=== PATIENT | male | born 1935 | race American Indian/Alaskan Native ===

== ENCOUNTER 2017-08-25 10:23 | Outpatient (CLI) | payer MEDICARE, OTHER ==
--- NOTE | 2017-08-25 12:54 | Cat Scan Report ---
CT LOWER EXTREMITY RIGHT WITHOUT CONTRAST HISTORY: Right hip pain. TECHNIQUE: Helical CT in 1.25 mm intervals were obtained through the right hip. Sagittal and coronal reformatted images. FINDINGS: Osteopenia is suspected. There is no evidence for fracture, dislocation or bone lesion. Mild osteoarthritic changes are identified. No evidence for osteonecrosis. The visualized right hemipelvis is intact. Soft tissue structures surrounding the right hip are within normal limits. IMPRESSION: Osteopenia. Mild age-appropriate osteoarthritis. No evidence for fracture, osteonecrosis or bone lesion.
== END 2017-08-25 10:24 | disposition home or self-care (01) ==
LOC: CT 10:23
PROVIDERS: ATTEND Internal Medicine
DX: M16.11 Unilateral primary osteoarthritis, right hip (principal); M85.88 Other specified disorders of bone density and structure, other site

== ENCOUNTER 2019-03-20 08:31 | Inpatient (IN) | payer MEDICARE, OTHER ==
[2019-03-20] MEDS ORDERED: APRESOLINE IV ONE (09:01)
--- NOTE | 2019-03-20 09:36 | Emergency Department Report ---
HPI - General Chief Complaint: Weakness Time Seen by Provider: 03/20/19 08:47 - HPI HPI: 83-year-old -Polish male presents to the emergency department via EMS from home with a complaint of some generalized weakness upon waking up this morning. Patient phoned his family because he was having difficulty making it to the bathroom. He got up from the bed and felt like he was going to pass out but was able to catch himself. He did not take anything for his symptoms prior to presentation. 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 He did not take any of his medications today and presents with elevated blood pressure. He does not complain of any headache, numbness, slurred speech or any focal or lateralizing deficits. He is not a tobacco smoker. His primary care physician is Dr. Braswell and he follows with [facility] cardiology. ED Past Medical Hx - Past Medical History Hx Hypertension: Yes Hx Diabetes: Yes (NIDDM 18 YEARS) Hx GERD: Yes Hx Arthritis: Yes - Social History Smoking Status: Never Smoker - Medications Home Medications: Home Medications Medication Instructions Recorded Confirmed Last Taken Type Aspirin [Aspirin BABY CHEW TAB] 81 mg PO QDAY 03/20/19 03/20/19 03/19/19 History Imipramine HCl 25 mg PO QDAY 03/20/19 03/20/19 03/19/19 History Ranolazine ER [Ranexa ER] 500 mg PO BID 03/20/19 03/20/19 03/19/19 History metFORMIN [Glucophage] 500 mg PO BID 03/20/19 03/20/19 03/19/19 History ED Review of Systems ROS: Stated complaint: WEAKNESS Other details as noted in HPI Comment: All other systems reviewed and negative Constitutional: weakness. denies: chills, fever Eyes: denies: eye pain, vision change ENT: denies: ear pain, throat pain Respiratory: denies: cough, wheezing Cardiovascular: denies: chest pain, palpitations Gastrointestinal: denies: abdominal pain, vomiting Genitourinary: denies: dysuria, discharge Musculoskeletal: denies: back pain, arthralgia Skin: denies: rash, lesions Neurological: denies: headache, weakness Physical Exam - Physical Exam Vital Signs: Vital Signs 03/20/19 03/20/19 08:34 08:44 Temperature 97.7 F Pulse Rate 60 Respiratory 18 Rate Blood Pressure 215/105 [Left] Physical Exam: GENERAL: The patient is well-developed well-nourished. HENT: Normocephalic. Atraumatic. Patient has moist mucous membranes. EYES: Extraocular motions are intact. Pupils equal reactive to light bilaterally. NECK: Supple. Trachea is midline. CHEST/LUNGS: Clear to auscultation. There is no respiratory distress noted. HEART/CARDIOVASCULAR: Regular. There is no tachycardia. There is no murmur. ABDOMEN: Abdomen is soft, nontender. Patient has normal bowel sounds. There is no abdominal distention. SKIN: Skin is warm and dry. NEURO: The patient is awake, alert, and oriented. The patient is cooperative. No pronator drift. No dysmetria. Cranial nerves II through XII grossly intact. Subjective decreased sensation to the left side of the face. Normal speech. No facial asymmetry. MUSCULOSKELETAL: There is no tenderness or deformity. There is no limitation range of motion. There is no evidence of acute injury. ED Course Vital Signs 03/20/19 03/20/19 08:34 08:44 Temperature 97.7 F Pulse Rate 60 Respiratory 18 Rate Blood Pressure 215/105 [Left] ED Medical Decision Making - Lab Data Result diagrams: 03/20/19 09:40 03/20/19 09:40 - EKG Data -: EKG Interpreted by [facility] EKG shows normal: sinus rhythm (PACs), axis, intervals, QRS complexes (Q waves to the septal leads), ST-T waves Rate: normal - EKG Data When compared to previous EKG there are: no significant change Interpretation: unchanged when compared t (01/05/15) - Radiology Data Radiology results: report reviewed CT head/brain wo con INDICATION: Stroke symptoms. TECHNIQUE: All CT scans at this location are performed using CT dose reduction for ALARA by means of automated exposure control. COMPARISON: None available. FINDINGS: Visualized paranasal and mastoid sinuses are clear. Moderate, age-appropriate cortical involution and chronic white matter ischemic change. No mass, hemorrhage or other acute abnormality. IMPRESSION: 1. Chronic changes. No acute abnormality. - Medical Decision Making This patient presents from home with the complaint of some generalized weakness that made it difficult for him to get up and ambulate and do his ADLs. He does not complain of any focal or lateralizing deficits but on examination he has some subjective decreased sensation to the left side of the face when compared to the right. This gives him a 1 on the NIH stroke scale. The patient woke up with these symptoms and/or complaints and therefore there is no obvious last known well time. The patient does not appear to be a TPA candidate. He also is low on the NIH stroke scale and is low likelihood to have a large vessel occlusion. CT scan of the head did not show any bleed, shift, mass, ischemia, or any other acute process. Only chronic changes noted. Patient has some hypertension but it has stayed stable or at a reasonable level throughout his ED course. After the negative CT scan of the head was performed, the patient was given a full dose aspirin. He will be admitted to the hospital for further evaluation and treatment and was accepted for admission by the hospitalist, Dr. Cook. - Differential Diagnosis CVA, TIA, dysrhythmia, hypoglycemia Critical Care Time: No Critical care attestation.: If time is entered above; I have spent that time in minutes in the direct care of this critically ill patient, excluding procedure time. ED Disposition Clinical Impression: Generalized weakness, Left facial numbness Hypertension Qualifiers: Hypertension type: essential hypertension Qualified Code(s): I10 - Essential (primary) hypertension Disposition: OP ADMIT IP TO THIS HOSP Is pt being admited?: Yes Condition: Fair Time of Disposition: 13:59 - Assessment Assessment Interval: Baseline - Level of Consciousness 1a. Level of Consciousness: alert/keenly responsive - LOC Questions 1b. LOC Questions: answers both correctly - LOC Command 1c. LOC Commands: performs tasks correctly - Best Gaze 2. Best Gaze: normal - Visual 3. Visual: no visual loss - Facial Palsy 4. Facial Palsy: normal symmetrical movement - Motor Arm 5a. Motor Arm Left: no drift 5b. Motor Arm Right: no drift - Motor Leg 6a. Motor Leg Left: no drift 6b. Motor Leg Right: no drift - Limb Ataxia 7. Limb Ataxia: absent - Sensory 8. Sensory: mild/moderate sensory loss - Best Language 9. Best Language: no aphasia - Dysarthria 10. Dysarthria: normal - Extinction and Inattention 11. Extinction/Inattention: no abnormality - Scoring Total Score: 1 Stroke Severity: Minor Stroke
--- NOTE | 2019-03-20 09:55 | Cat Scan Report ---
CT head/brain wo con INDICATION: Stroke symptoms. TECHNIQUE: All CT scans at this location are performed using CT dose reduction for ALARA by means of automated e xposure control. COMPARISON: None available. FINDINGS: Visualized paranasal and mastoid sinuses are clear. Moderate, age-appropriate cortical involution and chronic white matter ischemic change. No mass, hemorrhage or other acute abnormality. IMPRESSION: 1. Chronic changes. No acute abnormality. Signer Name: Mahamed Prakash MD Signed: 03/20/2019 9:50 AM Workstation Name: [id number]
[2019-03-20 10:11] LABS: Basophils # (Auto) 0.1 K/mm3 (0.0-0.1); Basophils % (Auto) 1.2 % (0.0-1.8); Eosinophils # (Auto) 0.1 K/mm3 (0.0-0.4); Eosinophils % (Auto) 0.8 % (0.0-4.3); Hematocrit 38.5 % (35.5-45.6); Hemoglobin 12.5 gm/dl (11.8-15.2); Lymphocytes # (Auto) 2.9 K/mm3 (1.2-5.4); Lymphocytes % (Auto) 30.9 % (13.4-35.0); Mean Corpuscular HGB Conc 33 % (32-34); Mean Corpuscular Volume 87 fl (84-94); Monocytes % (Auto) 11.1 % (0.0-7.3); Platelet Count 314 K/mm3 (140-440); Red Blood Count 4.42 M/mm3 (3.65-5.03); Red Cell Distribution Width 14.3 % (13.2-15.2)
[2019-03-20 10:26] LABS: Creatine Kinase MB 1.5 ng/mL (0.0-4.0)
[2019-03-20 10:27] LABS: Alanine Aminotransferase 11 units/L (7-56); Albumin 3.6 g/dL (3.9-5); BUN/Creatinine Ratio 20; Blood Urea Nitrogen 20 mg/dL (9-20); Calcium 9.4 mg/dL (8.4-10.2); Hemolysis Index 5
[2019-03-20 10:32] LABS: INR 0.94 (0.87-1.13)
[2019-03-20 10:33] LABS: Partial Thromboplastin Time 28.9 Sec. (24.2-36.6)
[2019-03-20] MEDS ORDERED: BABY ASPIRIN PO ONE (11:08)
--- NOTE | 2019-03-20 12:15 | History and Physical Report ---
History of Present Illness Chief complaint: I feel weak History of present illness: 83 YO male with DM, GERD, OA,HTN presents to ED for evaluation. Pt states that he was in his usual state of health at bedtime which was around 2030 hrs. Upon waking from sleep this morning the patient reports feeling weak and was unable to walk like he was able to do the prior evening. Pt also reports that he had difficulty speaking, as well as feeling like he was going to pass out. Pt called his family, who subsequently notified EMS. Upon arrival the patient was found to have neurologic deficit and transported to [facility]. Pt seen and evaluated in ED and found to have symptoms consistent with CVA. Pt admitted to telemetry and initi ated on CVA protocol. Pt is outside therapeutic window for TPA at time of evaluation. Pt denies fever, chills, CP, Palpitations, NVD, Trauma, BRBPR, Productive cough, skin rash, or recent ill contacts. No prior admission for review. All listed medication reconciled at time of admission. Past History Past Medical History: arthritis, diabetes, GERD, hypertension Past Surgical History: No surgical history, Other (reviewed) Social history: , lives with family. denies: smoking, alcohol abuse, prescription drug abuse Family history: diabetes, hypertension Medications and Allergies Allergies Allergy/AdvReac Type Severity Reaction Status Date / Time No Known Allergies Allergy Verified 01/03/15 11:25 Home Medications Medication Instructions Recorded Confirmed Last Taken Type Aspirin [Aspirin BABY CHEW TAB] 81 mg PO QDAY 03/20/19 03/20/19 03/19/19 History Imipramine HCl 25 mg PO QDAY 03/20/19 03/20/19 03/19/19 History Ranolazine ER [Ranexa ER] 500 mg PO BID 03/20/19 03/20/19 03/19/19 History metFORMIN [Glucophage] 500 mg PO BID 03/20/19 03/20/19 03/19/19 History Review of Systems Constitutional: no weight loss, no weight gain, no fever, no chills, no sweats Ears, nose, mouth and throat: no ear pain, no ear discharge, no tinnitis, no nose pain Cardiovascular: no chest pain, no orthopnea, no palpitations, no rapid/irregular heart beat, no edema Respiratory: no cough, no cough with sputum, no hemoptysis, no shortness of breath Gastrointestinal: no abdominal pain, no nausea, no vomiting Genitourinary Male: no hematuria, no flank pain, no discharge, no urinary frequency, no urinary hesitancy Rectal: no pain, no incontinence, no bleeding Musculoskeletal: no neck stiffness, no neck pain, no shooting arm pain, no low back pain Integumentary: no pruritis, no redness, no wounds, no jaundice, no boils Neurological: weakness, ataxia, lack of coordination, change in speech, balance difficulties, no tingling, no seizures, no headaches, no migraines Psychiatric: no anxiety, no memory loss, no change in sleep habits, no sleep disturbances, no hypersomnia, no change in appetite, no change in libido Endocrine: no cold intolerance, no heat intolerance, no excessive thirst, no polydipsia, no polyuria, no nocturia, no flushing Hematologic/Lymphatic: no easy bruising, no easy bleeding, no lymphadenopathy, no lymphedema Allergic/Immunologic: no urticaria, no allergic rhinitis, no anaphylaxis, no angioedema Exam - Constitutional Vitals: Temp Pulse Resp BP Pulse Ox 97.7 F 66 14 175/78 95 03/20/19 08:44 03/20/19 11:00 03/20/19 11:00 03/20/19 11:00 03/20/19 11:00 General appearance: Present: mild distress - EENT Eyes: Present: PERRL ENT: hearing intact, clear oral mucosa - Neck Neck: Present: supple, normal ROM - Respiratory Respiratory effort: normal Respiratory: bilateral: CTA - Cardiovascular Heart Sounds: Present: S1 & S2. Absent: rub, click - Extremities Extremities: pulses symmetrical, No edema Peripheral Pulses: within normal limits - Abdominal General gastrointestinal: Present: soft, non-tender, non-distended, normal bowel sounds Male genitourinary: Present: normal - Integumentary Integumentary: Present: clear, warm, dry - Musculoskeletal Musculoskeletal: gait normal, strength equal bilaterally - Psychiatric Psychiatric: appropriate mood/affect, intact judgment & insight - Neurologic Neurologic: CNII-XII intact, moves all extremities Results - Labs CBC & Chem 7: 03/20/19 09:40 03/20/19 09:40 Labs: Abnormal lab results 03/20/19 03/20/19 Range/Units 09:40 09:40 [place] % (Auto) 11.1 H (0.0-7.3) % Barren # 1.0 H (0.0-0.8) K/mm3 Glucose 124 H (75-100) mg/dL Total Creatine Kinase 39 L (55-170) units/L Albumin 3.6 L (3.9-5) g/dL Assessment and Plan - Patient Problems (1) CVA (cerebral vascular accident) Current Visit: Yes Status: Acute Qualifiers: Laterality of affected vessel: unspecified Plan to address problem: CVA Protocol: CT head, PT/OT/Speech Therapy consulted, Antiplatelet therapy, lipid panel, statin therapy, Carotid doppler, echo, neurology consulted, further testing as per neurology team. (2) HTN (hypertension) Current Visit: Yes Status: Acute Qualifiers: Hypertension type: essential hypertension Qualified Code(s): I10 - Ess ential (primary) hypertension Plan to address problem: Monitor bp q shift, permissive hypertension overnight. Goal systolic between 155-180 (3) Diabetes Current Visit: Yes Status: Acute Plan to address problem: ADA diet, insulin, accu check (4) GERD (gastroesophageal reflux disease) Current Visit: Yes Status: Acute Qualifiers: Esophagitis presence: without esophagitis Qualified Code(s): K21.9 - Gastro-esophageal reflux disease without esophagitis Plan to address problem: PPI therapy, supportive care,. (5) Osteoarthritis Current Visit: Yes Status: Acute Qualifiers: Spinal region: unspecified Plan to address problem: Pain control, supportive care. (6) DVT prophylaxis Current Visit: Yes Status: Acute Plan to address problem: SCD to BLE while in bed, Prophylactic lovenox
[2019-03-20] MEDS ORDERED: TYLENOL PO PRN (12:16)
[2019-03-20] MEDS ORDERED: REGLAN PO PRN (12:16)
[2019-03-20] MEDS ORDERED: SODIUM CHLORIDE FLUSH SYRINGE 10 ML IV PRN (12:16)
[2019-03-20] MEDS ORDERED: DULCOLAX PR PRN (12:16)
[2019-03-20] MEDS ORDERED: MILK OF MAGNESIA PO PRN (12:16)
[2019-03-20] MEDS ORDERED: ZOFRAN IV PRN (12:16)
[2019-03-20] MEDS ORDERED: PHENERGAN PR PRN (12:16)
--- NOTE | 2019-03-20 14:50 | Vascular Lab Report ---
VL carotid duplex BILAT INDICATION / CLINICAL INFORMATION: stroke. COMPARISON: None available. FINDINGS: Moderate plaque formation is demonstrated at both bifurcations. Velocity measurements and waveform an alysis indicate 60-70% stenosis of the right internal carotid artery, according to Nascet criteria. A pproximately 50% stenosis is demonstrated in the left internal carotid, again according to Nascet cri teria. Normal antegrade flow is demonstrated in both vertebral arteries. IMPRESSION: 1. 60-70% stenosis right internal carotid artery. 2. 50% stenosis left internal carotid artery. Signer Name: Mahamed Prakash MD Signed: 03/20/2019 2:46 PM Workstation Name: [id number]
[2019-03-20] MEDS: RANEXA ER PO SCH (21:26)
--- NOTE | 2019-03-21 09:36 | Progress Note ---
Assessment and Plan Assessment and plan: CVA (cerebral vascular accident) CVA Protocol: CT head, PT/OT/Speech Therapy consulted, Antiplatelet therapy, lipid panel, statin therapy, Carotid doppler, echo, neurology consulted, further testing as per neurology team. HTN (hypertension) Monitor bp q shift, permissive hypertension overnight. Goal systolic between 155-180 Diabetes ADA diet, insulin, accu check GERD (gastroesophageal reflux disease) PPI therapy, supportive care,. Osteoarthritis Pain control, supportive care. DVT prophylaxis SCD to BLE while in bed, Prophylactic lovenox History Interval history: No new issues overnight. Hospitalist Physical - Constitutional Vitals: Temp Pulse Resp BP Pulse Ox 98.6 F 63 18 146/78 95 03/21/19 07:59 03/21/19 07:59 03/21/19 07:59 03/21/19 07:59 03/21/19 07:59 General appearance: Present: no acute distress - EENT Eyes: Present: PERRL, EOM intact ENT: hearing intact, clear oral mucosa, dentition normal - Neck Neck: Present: supple, normal ROM - Respiratory Respiratory effort: normal Respiratory: bilateral: CTA - Cardiovascular Rhythm: regular Heart Sounds: Present: S1 & S2. Absent: gallop, rub - Extremities Extremities: no ischemia, No edema, Full ROM - Abdominal General gastrointestinal: soft, non-tender, non-distended, normal bowel sounds - Integumentary Integumentary: Present: clear, warm, dry - Neurologic Neurologic: CNII-XII intact, moves all extremities Results - Labs CBC & Chem 7: 03/20/19 09:40 03/20/19 09:40 Labs: Laboratory Last Values WBC 9.5 K/mm3 (4.5-11.0) 03/20/19 09:40 RBC 4.42 M/mm3 (3.65-5.03) 03/20/19 09:40 Hgb 12.5 gm/dl (11.8-15.2) 03/20/19 09:40 Hct 38.5 % (35.5-45.6) 03/20/19 09:40 MCV 87 fl (84-94) 03/20/19 09:40 MCH 28 pg (28-32) 03/20/19 09:40 MCHC 33 % (32-34) 03/20/19 09:40 RDW 14.3 % (13.2-15.2) 03/20/19 09:40 Plt Count 314 K/mm3 (140-440) 03/20/19 09:40 Lymph % (Auto) 30.9 % (13.4-35.0) 03/20/19 09:40 [place] % (Auto) 11.1 % (0.0-7.3) H 03/20/19 09:40 Eos % (Auto) 0.8 % (0.0-4.3) 03/20/19 09:40 Baso % (Auto) 1.2 % (0.0-1.8) 03/20/19 09:40 Lymph # 2.9 K/mm3 (1.2-5.4) 03/20/19 09:40 [place] # 1.0 K/mm3 (0.0-0.8) H 03/20/19 09:40 Eos # 0.1 K/mm3 (0.0-0.4) 03/20/19 09:40 Baso # 0.1 K/mm3 (0.0-0.1) 03/20/19 09:40 Seg Neutrophils % 56.0 % (40.0-70.0) 03/20/19 09:40 Seg Neutrophils # 5.3 K/mm3 (1.8-7.7) 03/20/19 09:40 PT 12.3 Sec. (12.2-14.9) 03/20/19 09:40 INR 0.94 (0.87-1.13) 03/20/19 09:40 APTT 28.9 Sec. (24.2-36.6) 03/20/19 09:40 Sodium 139 mmol/L (137-145) 03/20/19 09:40 Potassium 4.6 mmol/L (3.6-5.0) 03/20/19 09:40 Chloride 101.8 mmol/L (98-107) 03/20/19 09:40 Carbon Dioxide 23 mmol/L (22-30) 03/20/19 09:40 19 mmol/L 03/20/19 09:40 BUN 20 mg/dL (9-20) 03/20/19 09:40 1.0 mg/dL (0.8-1.5) 03/20/19 09:40 Estimated GFR > 60 ml/min 03/20/19 09:40 20 % 03/20/19 09:40 Glucose 124 mg/dL (75-100) H 03/20/19 09:40 POC Glucose 137 (70-105) H 03/21/19 08:07 Calcium 9.4 mg/dL (8.4-10.2) 03/20/19 09:40 0.30 mg/dL (0.1-1.2) 03/20/19 09:40 AST 16 units/L (5-40) 03/20/19 09:40 ALT 11 units/L (7-56) 03/20/19 09:40 68 units/L (35-129) 03/20/19 09:40 39 units/L (55-170) L 03/20/19 09:40 CK-MB (CK-2) 1.5 ng/mL (0.0-4.0) 03/20/19 09:40 CK-MB (CK-2) Rel Index 3.8 (0-4) 03/20/19 09:40 < 0.010 ng/mL (0.00-0.029) 03/20/19 09:40 8.0 g/dL (6.3-8.2) 03/20/19 09:40 3.6 g/dL (3.9-5) L 03/20/19 09:40 0.8 % 03/20/19 09:40 TSH 1.130 mlU/mL (0.270-4.200) 03/20/19 09:40 Plasma/Serum Alcohol < 0.01 % (0-0.07) 03/20/19 09:40 Active Medications - Current Medications Current Medications: Generic Name Dose Route Start Last Admin Trade Name Freq PRN Reason Stop Dose Admin Acetaminophen 650 mg 03/20/19 12:16 Tylenol PO Q4H PRN Pain, Mild (1-3) Aspirin 325 mg 03/21/19 10:00 Aspirin PO QDAY TERE Aspirin 81 mg 03/21/19 10:00 Baby Aspirin PO QDAY TERE Atorvastatin Calcium 40 mg 03/20/19 22:00 03/20/19 21:26 Lipitor PO 40 mg QHS TERE Administration Bisacodyl 10 mg 03/20/19 12:16 Dulcolax NC QDAY PRN Constipation Enoxaparin Sodium 40 mg 03/21/19 10:00 Lovenox SUB-Q QDAY@1000 TERE Magnesium Hydroxide 30 ml 03/20/19 12:16 Milk Of Magnesia PO Q4H PRN Constipation Metoclopramide HCl 10 mg 03/20/19 12:16 Reglan PO Q6H PRN Nausea And Vomiting Miscellaneous Medication 25 mg 03/21/19 10:00 Imipramine Hcl [Imipramine Hcl] PO QDAY [facility] Ondansetron HCl 4 mg 03/20/19 12:16 Zofran IV Q8H PRN Nausea And Vomiting Promethazine HCl 25 mg 03/20/19 12:16 Phenergan NC Q6H PRN Nausea And Vomiting Ranolazine 500 mg 03/20/19 22:00 03/20/19 21:26 Ranexa Er PO 500 mg BID [facility] Administration Sodium Chloride 10 ml 03/20/19 12:16 Sodium Chloride Flush Syringe 10 Ml IV PRN PRN LINE FLUSH
[2019-03-21] MEDS: RANEXA ER PO SCH ×2 (09:40→21:32)
[2019-03-21] MEDS: LOVENOX SUB-Q SCH (09:40)
[2019-03-21] MEDS: ASPIRIN PO SCH (09:40)
[2019-03-21] MEDS ORDERED: IMIPRAMINE HCL 25 MG PO SCH (10:00)
[2019-03-21] MEDS ORDERED: LOVENOX SUB-Q SCH (10:00)
[2019-03-21] MEDS ORDERED: BABY ASPIRIN PO SCH (10:00)
--- NOTE | 2019-03-21 11:20 | Progress Note ---
Subjective Date of service: 03/21/19 Interval history: see my extensive note on the exam and my analysis of the head CT suspect minor deep white matter strokes and severe diabetic neuropathy see saumya intrinsic hand muscle atrophy Objective - Vital Sign Vital Signs - 12hr 03/21/19 03/21/19 03/21/19 00:59 01:07 04:07 Temperature 98.0 F Pulse Rate 104 H 90 Respiratory 20 Rate Blood Pressure 122/80 O2 Sat by Pulse 100 Oximetry 03/21/19 03/21/19 03/21/19 05:16 05:17 07:59 Temperature 98.1 F 98.6 F Pulse Rate 65 63 Respiratory 18 18 Rate Blood Pressure 135/66 146/78 O2 Sat by Pulse 100 95 Oximetry - Laboratory Findings CBC and BMP: 03/20/19 09:40 03/20/19 09:40 Abnormal Lab Findings: Abnormal Labs 03/20/19 03/20/19 03/20/19 09:40 09:40 16:12 [place] % (Auto) 11.1 H [place] # 1.0 H Glucose 124 H POC Glucose 138 H Total Creatine Kinase 39 L Albumin 3.6 L 03/20/19 03/21/19 22:01 08:07 [place] % (Auto) [place] # Glucose POC Glucose 179 H 137 H Total Creatine Kinase Albumin
--- NOTE | 2019-03-22 04:30 | Consultation ---
HISTORY OF PRESENT ILLNESS: This 83-year-old black male who enters [facility] through the Emergency Room where he had presented with onset of being markedly weak, unable to walk. He apparently got up in the morning and was not feeling well, it was stated that he could not feel his legs, could not feel his hands. He got up to go to the bathroom, he felt like he was going to pass out. He possibly had a syncopal episode, although from his description it does not appear that he did actually pass out or that he became generally weak and numb. He has a long history of diabetes mellitus and is taking insulin, also imipramine, aspirin, Ranexa XR 500 mg b.i.d. and metformin 500 mg b.i.d. He does not have a prior medical history of stroke. When he presented to the Emergency Room, his blood sugar was elevated at 124. His hematocrit was 38.5. He was felt to be possibly have a stroke, but the case was presented to the tele-neurology and NIH stroke scale was 1 and he was not felt to be a candidate for further TPA. Subsequently, he has been admitted, his blood pressure was markedly elevated at 215/105. He is felt to have some degree of hypertensive encephalopathy. I would note, the patient has an opacified left pupil is reactive to light, but he does have extraocular movements being intact. This is a condition present on admission as documented by the Emergency Room physician's note. My review of the CT scan of the head reveals the ventricular system is normal. He has a mild degree of cerebellar atrophy, but very marked frontal atrophy. I do not see any evidence of any subdurals. There is enlarged subarachnoid space. He also has patchy loss of the white matter in both, the central white matter in the internal capsule more predominantly so over the right than the left. The patient has evidence also of calcification in the medial globus pallidus, it is bilateral, which based on my review seems to be physiological since there is no extension of this calcification of the caudate nucleus. I did not see calcification within the nuclear structures of the cerebellum. The brainstem I should point out has a very normal volume. There is no evidence of any degeneration of the brain stem structures. Overall, the degree of loss of cortical volume over the hemispheres is probably compatible with the stated age of 83. On my examination of the patient, he is alert and appropriate. Speech is clear. Affect is appropriate. He is blind in the left eye. He has full ocular movements, however. He has very marked degree of loss of movement in the hands, the intrinsic hand muscle atrophy. Absent reflexes are present throughout. The patient does have intact motor tone, although he is markedly weak in the intrinsic hand muscles indicative of median and ulnar neuropathy probably very advanced related to peripheral diabetic disease. IMPRESSION: Acute onset of near syncopal episode. Clearly, there are number of issues centrally in the brain, deep white matter disease. I would recommend getting an MRI because he could have had a small lacunar infarct in the deep white matter. I do not see that he has any space occupying masses. There is certainly no subdural. 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 I am not sure the etiology of this. Further questioning may be necessary to elucidate the mechanism of this issue. I would recommend getting an EEG as well likely this could have been a seizure. I plan to follow the patient with you. JOB# [id number] ERIK/MARIE
[2019-03-22] MEDS: LOVENOX SUB-Q SCH (10:40)
[2019-03-22] MEDS: ASPIRIN PO SCH (10:40)
[2019-03-22] MEDS: RANEXA ER PO SCH ×2 (10:40→21:27)
--- NOTE | 2019-03-22 11:47 | Progress Note ---
Assessment and Plan Assessment and plan: Hypertensive encephalopathy CT head negative. No evidence of CVA yet but MRI pending. Echocardiogram revealed left ventricular chamber size normal with septal wall hypertrophy and EF of 55-60%. Left ventricular systolic function normal. No visual thrombus identified. Carotid ultrasound revealed 60-70% stenosis in the right internal carotid artery. Neurology consult to and ordered EEG and MRI to rule out seizure disorder and possibility of small lacunar infarct. Right ICA stenosis. Vascular surgery consultation. No critical stenosis. Therefore, patient will likely follow up as an outpatient. HTN (hypertension) Monitor bp q shift, permissive hypertension overnight. Goal systolic between 155-180 Diabetes ADA diet, insulin, accu check GERD (gastroesophageal reflux disease) PPI therapy, supportive care,. Osteoarthritis Pain control, supportive care. DVT prophylaxis SCD to BLE while in bed, Prophylactic lovenox History Interval history: No new issues overnight. Hospitalist Physical - Constitutional Vitals: Temp Pulse Resp BP Pulse Ox 98.2 F 68 22 153/72 38 L 03/22/19 07:42 03/22/19 09:11 03/22/19 07:42 03/22/19 07:42 03/22/19 07:42 General appearance: Present: no acute distress - EENT Eyes: Present: PERRL, EOM intact ENT: hearing intact, clear oral mucosa, dentition normal - Neck Neck: Present: supple, normal ROM - Respiratory Respiratory effort: normal Respiratory: bilateral: CTA - Cardiovascular Rhythm: regular Heart Sounds: Present: S1 & S2. Absent: gallop, rub - Extremities Extremities: no ischemia, No edema, Full ROM - Abdominal General gastrointestinal: soft, non-tender, non-distended, normal bowel sounds - Integumentary Integumentary: Present: clear, warm, dry - Neurologic Neurologic: CNII-XII intact, moves all extremities Results - Labs CBC & Chem 7: 03/20/19 09:40 03/20/19 09:40 Labs: Laboratory Last Values WBC 9.5 K/mm3 (4.5-11.0) 03/20/19 09:40 RBC 4.42 M/mm3 (3.65-5.03) 03/20/19 09:40 Hgb 12.5 gm/dl (11.8-15.2) 03/20/19 09:40 Hct 38.5 % (35.5-45.6) 03/20/19 09:40 MCV 87 fl (84-94) 03/20/19 09:40 MCH 28 pg (28-32) 03/20/19 09:40 MCHC 33 % (32-34) 03/20/19 09:40 RDW 14.3 % (13.2-15.2) 03/20/19 09:40 Plt Count 314 K/mm3 (140-440) 03/20/19 09:40 Lymph % (Auto) 30.9 % (13.4-35.0) 03/20/19 09:40 [place] % (Auto) 11.1 % (0.0-7.3) H 03/20/19 09:40 Eos % (Auto) 0.8 % (0.0-4.3) 03/20/19 09:40 Baso % (Auto) 1.2 % (0.0-1.8) 03/20/19 09:40 Lymph # 2.9 K/mm3 (1.2-5.4) 03/20/19 09:40 [place] # 1.0 K/mm3 (0.0-0.8) H 03/20/19 09:40 Eos # 0.1 K/mm3 (0.0-0.4) 03/20/19 09:40 Baso # 0.1 K/mm3 (0.0-0.1) 03/20/19 09:40 Seg Neutrophils % 56.0 % (40.0-70.0) 03/20/19 09:40 Seg Neutrophils # 5.3 K/mm3 (1.8-7.7) 03/20/19 09:40 PT 12.3 Sec. (12.2-14.9) 03/20/19 09:40 INR 0.94 (0.87-1.13) 03/20/19 09:40 APTT 28.9 Sec. (24.2-36.6) 03/20/19 09:40 Sodium 139 mmol/L (137-145) 03/20/19 09:40 Potassium 4.6 mmol/L (3.6-5.0) 03/20/19 09:40 Chloride 101.8 mmol/L (98-107) 03/20/19 09:40 Carbon Dioxide 23 mmol/L (22-30) 03/20/19 09:40 19 mmol/L 03/20/19 09:40 BUN 20 mg/dL (9-20) 03/20/19 09:40 1.0 mg/dL (0.8-1.5) 03/20/19 09:40 Estimated GFR > 60 ml/min 03/20/19 09:40 20 % 03/20/19 09:40 Glucose 124 mg/dL (75-100) H 03/20/19 09:40 POC Glucose 163 (70-105) H 03/22/19 11:12 Calcium 9.4 mg/dL (8.4-10.2) 03/20/19 09:40 0.30 mg/dL (0.1-1.2) 03/20/19 09:40 AST 16 units/L (5-40) 03/20/19 09:40 ALT 11 units/L (7-56) 03/20/19 09:40 68 units/L (35-129) 03/20/19 09:40 39 units/L (55-170) L 03/20/19 09:40 CK-MB (CK-2) 1.5 ng/mL (0.0-4.0) 03/20/19 09:40 CK-MB (CK-2) Rel Index 3.8 (0-4) 03/20/19 09:40 < 0.010 ng/mL (0.00-0.029) 03/20/19 09:40 8.0 g/dL (6.3-8.2) 03/20/19 09:40 3.6 g/dL (3.9-5) L 03/20/19 09:40 0.8 % 03/20/19 09:40 TSH 1.130 mlU/mL (0.270-4.200) 03/20/19 09:40 Plasma/Serum Alcohol < 0.01 % (0-0.07) 03/20/19 09:40 Active Medications - Current Medications Current Medications: Generic Name Dose Route Start Last Admin Trade Name Freq PRN Reason Stop Dose Admin Acetaminophen 650 mg 03/20/19 12:16 Tylenol PO Q4H PRN Pain, Mild (1-3) Aspirin 325 mg 03/21/19 10:00 03/22/19 10:40 Aspirin PO 325 mg QDAY TERE Administration Atorvastatin Calcium 40 mg 03/20/19 22:00 03/21/19 21:32 Lipitor PO 40 mg QHS TERE Administration Bisacodyl 10 mg 03/20/19 12:16 Dulcolax DE QDAY PRN Constipation Enoxaparin Sodium 40 mg 03/21/19 10:00 03/22/19 10:40 Lovenox SUB-Q 40 mg QDAY@1000 [facility] Administration Magnesium Hydroxide 30 ml 03/20/19 12:16 Milk Of Magnesia PO Q4H PRN Constipation Metoclopramide HCl 10 mg 03/20/19 12:16 Reglan PO Q6H PRN Nausea And Vomiting Miscellaneous Medication 25 mg 03/21/19 10:00 Imipramine Hcl [Imipramine Hcl] PO QDAY TERE Ondansetron HCl 4 mg 03/20/19 12:16 Zofran IV Q8H PRN Nausea And Vomiting Promethazine HCl 25 mg 03/20/19 12:16 Phenergan DE Q6H PRN Nausea And Vomiting Ranolazine 500 mg 03/20/19 22:00 03/22/19 10:40 Ranexa Er PO 500 mg BID TERE Administration Sodium Chloride 10 ml 03/20/19 12:16 Sodium Chloride Flush Syringe 10 Ml IV PRN PRN LINE FLUSH
[2019-03-22 12:37] LABS: Chol/HDL Ratio 4.48 %
--- NOTE | 2019-03-22 14:16 | Magnetic Resonance Report ---
MRI BRAIN WITHOUT CONTRAST INDICATION / CLINICAL INFORMATION: MAIN: seizure, weakness and difficulty walking.. TECHNIQUE: Multisequence, multiplanar images were obtained. COMPARISON: CT head dated 03/20/2019 FINDINGS: CEREBRAL and CEREBELLAR HEMISPHERES: Moderate diffuse cortical volume loss and moderate chronic ische anay changes in the white matter are again identified. No evidence of mass or mass effect. No midline shift. No acute hemorrhage. No diffusion restriction to suggest acute infarct. No extra-axial flu id collection. No chronic infarct. VENTRICLES: Normal in size and configuration for age. VISUALIZED ORBITS: No significant abnormality. VISUALIZED PARANASAL SINUSES: No significant abnormality. ADDITIONAL FINDINGS: None. IMPRESSION: Volume loss and nonspecific chronic white matter changes. No acute intracranial process. Signer Name: Dave Ramon Jr, MD Signed: 03/22/2019 2:11 PM Workstation Name: [id number]
[2019-03-23 08:21] VITALS: BP 128/84
--- NOTE | 2019-03-23 09:55 | Discharge Summary ---
Providers - Providers Date of Admission: 03/20/19 12:34 Date of discharge: 03/23/19 Attending physician: BRANDIN ROMERO MD 03/20/19 12:16 Occupational Therapy Evaluate and Treat [CONS] Routine Comment: Reason For Exam: Neuro deficits Physical Therapy Evaluation and Treat [CONS] Routine Comment: Reason For Exam: Neuro deficits 03/20/19 12:17 Speech Therapy Evaluation and Treat [CONS] Routine Reason For Exam: swallow eval 03/20/19 12:20 Consult to Physician [CONS] Routine Comment: Consulting Provider: JIMMY SIMS Physician Instructions: Reason For Exam: cva [facility] Reason for admission: CVA, HTN, Condition: Fair Pertinent studies: CT, CTA, MRI head ECHO, carotid doppler Hospital course: 83 YO male with DM, GERD, OA,HTN presents to ED for evaluation. Pt states that he was in his usual state of health at bedtime which was around 2030 hrs. Upon waking from sleep this morning the patient reports feeling weak and was unable to walk like he was able to do the prior evening. Pt also reports that he had difficulty speaking, as well as feeling like he was going to pass out. Pt called his family, who subsequently notified EMS. Upon arrival the patient was found to have neurologic deficit and transported to [facility]. Pt seen and evaluated in ED and found to have symptoms consistent with CVA. Pt admitted to telemetry and initiated on CVA protocol. Pt is outside therapeutic window for TPA at time of evaluation. Pt denies fever, chills, CP, Palpitations, NVD, Trauma, BRBPR, Productive cough, skin rash, or recent ill contacts. No prior admission for review. All listed medication reconciled at time of admission. Hypertensive encephalopathy CT head negative. No evidence of CVA . Echocardiogram revealed left ventricular chamber size normal with septal wall hypertrophy and EF of 55-60%. Left ventricular systolic function normal. No visual thrombus identified. Carotid ultrasound revealed 60-70% stenosis in the right internal carotid artery. Neurology consult to and ordered EEG and MRI to rule out seizure disorder and possibility of small lacunar infarct. MRI showed no acute stroke. It showed generalized volume loss. Right ICA stenosis. Vascular surgery consultation. No critical stenosis. Therefore, patient will likely follow up as an outpatient. HTN (hypertension) Monitor bp q shift, permissive hypertension overnight. Diabetes ADA diet, insulin, accu check GERD (gastroesophageal reflux disease) PPI therapy, supportive care,. Osteoarthritis Pain control, supportive care. Patient was hemodynamically stable and discharged home with home health. Appropriate medication scripts were given at the time of discharge. Disposition: [id number] HOME UNDER HOME [facility] Time spent for discharge: 32 mintes - Discharge Diagnoses (1) CVA (cerebral vascular accident) Status: Acute Qualifiers: Laterality of affected vessel: unspecified (2) Diabetes Status: Acute (3) GERD (gastroesophageal reflux disease) Status: Acute Qualifiers: Esophagitis presence: without esophagitis Qualified Code(s): K21.9 - Gastro-esophageal reflux disease without esophagitis (4) Generalized weakness Status: Acute (5) HTN (hypertension) Status: Acute Qualifiers: Hypertension type: essential hypertension Qualified Code(s): I10 - Essential (primary) hypertension (6) Hypertension Status: Acute Qualifiers: Hypertension type: essential hypertension Qualified Code(s): I10 - Essential (primary) hypertension (7) Left facial numbness Status: Acute Core Measure Documentation - Palliative Care Palliative Care/ Comfort Measures: Not Applicable - Core Measures Any of the following diagnoses?: stroke - Stroke Discharge Requirements Statin for LDL = or >70 mg/dl on DC: Yes Anticoag for atrial fib/atrial flutter: Not Applicable Antithrombotic for ischemic stroke: Yes Exam - Physical Exam Narrative exam: Not in cardiopulmonary distress. The patient appeared well nourished and normally developed. Vital signs as documented. Head exam is unremarkable. No scleral icterus . Neck is without jugular venous distension, thyromegaly, or carotid bruits. Lungs are clear to auscultation. Cardiac exam reveals regular rate and Rhythm. First and second heart sounds normal. No murmurs, rubs or gallops. Abdominal exam reveals normal bowel sounds, no masses, no organomegaly and no aortic enlargement. Extremities are nonedematous and both femoral and pedal pulses are normal. METHODOLOGIST: Alert and oriented 3. No focal weakness. - Constitutional Vitals: Temp Pulse Resp BP Pulse Ox 97.5 F L 66 14 128/84 97 03/23/19 08:19 03/23/19 08:19 03/23/19 08:19 03/23/19 08:19 03/23/19 08:19 Plan Activity: no restrictions Weight Bearing Status: Full Weight Bearing Diet: low cholesterol, low salt, diabetic [facility] - 7 Days Prescriptions: AtorvaSTATin [Lipitor] 40 mg PO QHS #30 tablet Clopidogrel [Plavix] 75 mg PO QDAY #30 tablet
[2019-03-23] MEDS: ASPIRIN PO SCH (09:58)
[2019-03-23] MEDS: RANEXA ER PO SCH (09:59)
[2019-03-23] MEDS: LOVENOX SUB-Q SCH (09:59)
[2019-03-23] MEDS ORDERED: HumaLOG SUB-Q SCH (11:30)
== END 2019-03-23 12:56 | disposition home health service (06) | DRG 77 ==
LOC: ED 08:31 → 4A 12:34
PROVIDERS: ADMIT Internal Medicine; ATTEND Internal Medicine
DX: I67.4 Hypertensive encephalopathy (principal); I63.9 Cerebral infarction, unspecified; I10 Essential (primary) hypertension; E11.9 Type 2 diabetes mellitus without complications; K21.9 Gastro-esophageal reflux disease without esophagitis; R20.0 Anesthesia of skin; I65.21 Occlusion and stenosis of right carotid artery; M19.90 Unspecified osteoarthritis, unspecified site; Z82.49 Family history of ischemic heart disease and other diseases of the circulatory system; Z83.3 Family history of diabetes mellitus; Z79.82 Long term (current) use of aspirin; Z79.899 Other long term (current) drug therapy
CPT/HCPCS: 36415; 70450; 70551; 80053; 80061; 80320; 82550; 82553; 82962; 84443; 84484; 85025; 85610; 85730; 93005; 93010; 93306; 93880; G0378; A9270-GY; G0480; J0360; J1650